=== PATIENT | male | born 1970 ===

== ENCOUNTER 2017-03-24 09:12 | Emergency (ER) | payer MEDICAID ==
[2017-03-24] MEDS ORDERED: NS 1,000 ML IV ONE (09:22)
--- NOTE | 2017-03-24 09:22 | CPEKG ---
Heart Rate: 82 RR Interval: 732 P-R Interval: 148 QRSD Interval: 86 QT Interval: 356 QTC Interval: 416 P Peterson: 74 QRS Peterson: -15 T Wave Peterson: 55 EKG Severity - OTHERWISE NORMAL ECG - EKG Impression: SINUS RHYTHM EKG Impression: BORDERLINE LEFT AXIS DEVIATION Preliminary Awaiting MD Review
[2017-03-24] MEDS ORDERED: LORazepam 2 MG/ML INJ IVP ONE (09:23)
--- NOTE | 2017-03-24 09:28 | EDPHY ---
HPI/HX/ROS/PE/MDM Narrative: CHIEF COMPLAINT: Anxiety, epigastric pain HPI: The patient is a 46 y/o male complaining of anxiety over the last week that worsening last night. He has a history of HIV and anxiety, but does not treat his anxiety with medication. He has been feeling particularly stressed and had a panic attack last week. He was unable to sleep last night due to worsening anxiety and associated dull epigastric pain. He currently feels mildly short of breath. He has never felt these symptoms before. He denies recent illness, vomiting, fever. He has no known cardiac disease or respiratory disease. REVIEW OF SYSTEMS: Aside from elements discussed in the HPI, a comprehensive 10-point review of systems was reviewed and is negative. PMH: Anxiety, HIV positive on medications, last CD4 level "undetectable" SOCIAL HISTORY: PHYSICAL EXAM: General:Patient is alert, in no acute distress. ENT:Eyes are normal to inspection. ENT inspection normal. Neck: Normal inspection. Full range of motion. Respiratory:No respiratory distress. Breath sounds normal bilaterally. Cardiovascular: Regular rate and rhythm. Strong peripheral pulses. Normal cap refill. Abdomen:The abdomen is nontender to palpation. There are no peritoneal signs. There are normal bowel sounds. Back: Normal to inspection. No tenderness to palpation. Skin: Normal color. No rash. Warm and dry. Extremities: Normal appearance. Full range of motion. Neuro: Oriented x3. Normal motor function. Normal sensory function. ED Course: This is a 46 y/o male with a history of anxiety who presents with anxiety and a dull epigastric ache since last night. His exam is completely normal and notably he is not tachycardic or tachypneic. He has no known cardiac risk factors. Plan for IV, labs, EKG, and chest x-ray. 1mg PO Ativan and 1L IV NS administered for symptoms. The 12 lead EKG was interpreted by myself. Sinus mechanism rate 82. See hard copy and/or "tracemaster" electronic copy for interpretation. Chest x-ray: negative 1050: Reevaluated patient and discussed work up. His labs, EKG, and x-ray are all unremarkable. He feels improved after Ativan. I offered him admission for further testing, but he declined and would prefer to follow up as an outpatient. Return precautions discussed. He is comfortable with this plan. - Data Points Imaging: I viewed and interpreted images myself Laboratory Results: Laboratory Results 03/24/17 09:23 03/24/17 09:23 03/24/17 03/24/17 09:23 09:23 WBC 6.18 10^3/uL 10^3/uL (3.80-9.50) RBC 4.98 10^6/uL 10^6/uL (4.40-6.38) Hgb 18.3 g/dL H g/dL (13.7-17.5) Hct 48.9 % % (40.0-51.0) MCV 98.2 fL fL (81.5-99.8) MCH 36.7 pg H pg (27.9-34.1) MCHC 37.4 g/dL H g/dL (32.4-36.7) RDW 11.7 % % (11.5-15.2) Plt Count 187 10^3/uL 10^3/uL (150-400) MPV 9.4 fL fL (8.7-11.7) Neut % (Auto) 60.6 % % (39.3-74.2) Lymph % (Auto) 30.3 % % (15.0-45.0) Gregory % (Auto) 6.5 % % (4.5-13.0) Eos % (Auto) 1.8 % % (0.6-7.6) Baso % (Auto) 0.5 % % (0.3-1.7) Nucleat RBC Rel Count 0.0 % % (0.0-0.2) Absolute Neuts (auto) 3.75 10^3/uL 10^3/uL (1.70-6.50) Absolute Lymphs (auto) 1.87 10^3/uL 10^3/uL (1.00-3.00) Absolute Monos (auto) 0.40 10^3/uL 10^3/uL (0.30-0.80) Absolute Eos (auto) 0.11 10^3/uL 10^3/uL (0.03-0.40) Absolute Basos (auto) 0.03 10^3/uL 10^3/uL (0.02-0.10) Absolute Nucleated RBC 0.00 10^3/uL 10^3/uL (0-0.01) Immature Gran % 0.3 % % (0.0-1.1) Immature Gran # 0.02 10^3/uL 10^3/uL (0.00-0.10) Sodium 139 mEq/L mEq/L (134-144) Potassium 4.0 mEq/L mEq/L (3.5-5.2) Chloride 102 mEq/L mEq/L (97-110) Carbon Dioxide 25 mEq/l mEq/l (22-31) Anion Gap 12 mEq/L mEq/L (8-16) BUN 18 mg/dL mg/dL (7-23) Creatinine 1.1 mg/dL mg/dL (0.7-1.3) Estimated GFR > 60 Glucose 119 mg/dL H mg/dL (70-100) Calcium 9.7 mg/dL mg/dL (8.5-10.4) Troponin I < 0.012 ng/mL ng/mL (0.000-0.034) Medications Given: Discontinued Medications Sodium Chloride (Ns) 1,000 mls @ 0 mls/hr IV EDNOW ONE; Wide Open PRN Reason: Protocol Stop: 03/24/17 09:23 Last Admin: 03/24/17 09:27 Dose: 1,000 mls Lorazepam (Ativan Injection) 1 mg IVP EDNOW ONE Stop: 03/24/17 09:24 Last Admin: 03/24/17 09:27 Dose: 1 mg General Time Seen by Provider: 03/24/17 09:18 Initial Vital Signs: Initial Vital Signs Temperature (C) 36.5 C 03/24/17 09:19 Heart Rate 84 03/24/17 09:19 Respiratory Rate 19 03/24/17 09:19 Blood Pressure 159/97 H 03/24/17 09:19 O2 Sat (%) 98 03/24/17 09:19 O2 Delivery Mode Room Air Allergies/Adverse Reactions: No Known Allergies Allergy (Unverified 03/24/17 09:22) Departure - Departure Disposition: Home, Routine, Self-Care Clinical Impression: Anxiety, Epigastric pain Instructions: Anxiety (ED), Epigastric Pain (ED) Additional Instructions: Follow up with your primary care provider and mortgage servicing specialist. Return to the ED for worsening of condition. Referrals: Sarah Humphreys NP [Primary Care Provider] - As per Instructions Zander Peterson MD [Medical Doctor] - As per Instructions Report Scribed for: Trevor Baca Report Scribed by: Marsha Koroma Date of Report: 03/24/17 Time of Report: 09:28 Physician Review and Approval Statement: Portions of this note were transcribed by an ED scribe. I personally performed the history, physical exam, and medical decision making; and confirm the accuracy of the information in the transcribed note.
[2017-03-24 09:44] LABS: ANION GAP 12 mEq/L (8-16); CALCIUM 9.7 mg/dL (8.5-10.4); CARBON DIOXIDE 25 mEq/l (22-31); CHLORIDE 102 mEq/L (97-110); CREATININE 1.1 mg/dL (0.7-1.3); GLOMERULAR FILTRATION RATE > 60; GLUCOSE 119 mg/dL (70-100); SODIUM 139 mEq/L (134-144)
[2017-03-24 09:55] LABS: TROPONIN I < 0.012 ng/mL (0.000-0.034)
[2017-03-24 10:00] LABS: % IMMATURE GRANULYOCYTES 0.3 % (0.0-1.1); ABSOLUTE IMMATURE GRANULOCYTES 0.02 10^3/uL (0.00-0.10); ADD DIFF? NO; ADD MORPH? NO; ADD SCAN? NO; ATYPICAL LYMPHOCYTE FLAG 0 (0-99); FRAGMENT RBC FLAG 0 (0-99); HEMATOCRIT 48.9 % (40.0-51.0); HEMOGLOBIN 18.3 g/dL (13.7-17.5); LEFT SHIFT FLG 0 (0-99); LIPEMIA HEMOLYSIS FLAG 90 (0-99); MEAN CELL HEMOGLOBIN 36.7 pg (27.9-34.1); MEAN CELL HEMOGLOBIN CONCENTR. 37.4 g/dL (32.4-36.7); MEAN CELL VOLUME 98.2 fL (81.5-99.8); MEAN PLATELET VOLUME 9.4 fL (8.7-11.7); PLATELET CLUMPS FLAG 0 (0-99); PLATELET COUNT 187 10^3/uL (150-400); RED BLOOD CELL COUNT 4.98 10^6/uL (4.40-6.38); RED CELL DISTRIBUTION WIDTH 11.7 % (11.5-15.2)
[2017-03-24 11:04] VITALS: BP 115/72; PULSE 61; RESP 16; TEMP 97.5; O2SAT 94
== END 2017-03-24 11:05 | disposition home or self-care (01) ==
DX: F41.9 Anxiety disorder, unspecified (principal); R10.13 Epigastric pain; E86.9 Volume depletion, unspecified
CPT/HCPCS: 96374; J2060